=== PATIENT | male | born 1990 | race Caucasian/White ===

== ENCOUNTER 2019-11-04 21:17 | Emergency (ER) | payer SELFPAY ==
[2019-11-04] MEDS ORDERED: LIDOCAINE 1% INJ-PF (10 MG/ML) 30 ML SDV INJ ONE (21:26)
[2019-11-04] MEDS ORDERED: DOXYCYCLINE HYCLATE 100 MG TABLET PO ONE (21:26)
[2019-11-04] MEDS ORDERED: IBUPROFEN 600 MG TABLET PO ONE (21:31)
--- NOTE | 2019-11-04 21:31 | ER Document Report ---
HPI - HPI Time Seen by Provider: 11/04/19 21:26 Pain Level: 3 Notes: CHIEF COMPLAINT: Infection right third finger HPI: 29-year-old male presenting for evaluation of an infection to the right third finger. He believes something bit him on the finger yesterday he has had increasing swelling with difficulty bending the finger today. States tetanus is up-to-date in the last 5 years. ROS: See HPI - all other systems were reviewed and are otherwise negative Constitutional: no fever Integumentary: no rash Allergy: no hives Musculoskeletal: + extremity pain or swelling Neurological: no numbness/tingling, no weakness MEDICATIONS: I agree with the patient medications as charted by the RN. ALLERGIES: I agree with the allergies as charted by the RN. PAST MEDICAL HISTORY/PAST SURGICAL HISTORY: Reviewed and agree as charted by RN. SOCIAL HISTORY: Reviewed and agree as charted by RN. FAMILY HISTORY: No significant familial comorbid conditions directly related to patient complaint EXAM: Reviewed vital signs as charted by RN. CONSTITUTIONAL: Alert and oriented and responds appropriately to questions. Well-appearing; well-nourished, mild distress secondary to pain HEAD: Normocephalic; atraumatic EYES: Conjunctivae clear, sclerae non-icteric ENT: normal nose; no rhinorrhea; moist mucous membranes NECK: Supple without meningismus CARD: symmetric distal pulses RESP: Normal chest excursion without splinting or tachypnea ABD/GI: non-distended BACK: The back appears normal EXT: Slightly limited flexion extension of the right third finger at the PIP joint space region. There is induration with what appears to be 2 small open wounds on the volar pad of the proximal phalanx of the right third finger. No significant overlying erythema. Patient is able to fully flex and extend the right third finger at the DIP joint space region capillary refill less than 3 seconds with intact sensation to touch SKIN: Normal color for age and race; warm; dry; good turgor NEURO: Moves all extremities equally; Motor and sensory function intact PSYCH: The patient's mood and manner are appropriate. Grooming and personal hygiene are appropriate. MDM: 29-year-old male possible early abscess on the volar pad of the right third finger proximal phalanx. We will plan to make a small incision to open and drain the wound area. Discussed close follow-up with the patient given the location of the infected area. Will need to closely follow with orthopedics. Will place patient on doxycycline - CONSTITUTIONAL Constitutional: DENIES: Fever, Chills Past Medical History - Social History Smoking Status: Current Every Day Smoker Frequency of alcohol use: None Drug Abuse: None Family History: Reviewed & Not Pertinent Patient has suicidal ideation: No Patient has homicidal ideation: No Procedures - Incision and Drainage Right Proximal Finger 3rd digit Time completed: 21:49 Type: Simple Anesthetic type: 1% Lidocaine mL's of anesthetic: 1 Blade size: 11 I&D procedure: Chlorprep applied, Iodoform packing placed, Sterile dressing applied Incision Method: Incision made by scalpel Amount/type of drainage: < 1 clear Discharge - Discharge Clinical Impression: Abscess of finger of right hand Condition: Stable Disposition: HOME, SELF-CARE Additional Instructions: Pull the packing out in 2 days. Warm compresses to the area until healed. Take the antibiotics as prescribed. Follow-up with orthopedics for further evaluation and treatment call for appointment. Return for any worsening redness or swelling of the finger Prescriptions: Doxycycline Monohydrate 100 mg PO BID #20 capsule Ibuprofen [Motrin 600 Mg Tablet] 600 mg PO Q6H #15 tablet Referrals: TITO FLANNERY JR, DO [ACTIVE PROVISIONAL STAFF] - Follow up as needed
[2019-11-04 22:05] VITALS: BP 114/61
== END 2019-11-04 22:20 | disposition home or self-care (01) ==
LOC: ER 21:17
DX: L02.511 Cutaneous abscess of right hand (principal); F17.200 Nicotine dependence, unspecified, uncomplicated
CPT/HCPCS: 99283; 26010; J3490